=== PATIENT | male | born 1990 | race Caucasian/White ===

== ENCOUNTER → 2018-01-19 | Emergency (ER) | payer OTHER ==
[~2018-01-19] VITALS: Ht 167.6 cm; Wt 70.3 kg
== END | disposition home or self-care (01) ==
LOC: ER 15:55
DX: T18.0XXA Foreign body in mouth, initial encounter (principal); T54.91XA Toxic effect of unspecified corrosive substance, accidental (unintentional), initial encounter; Y92.89 Other specified places as the place of occurrence of the external cause; Y93.89 Activity, other specified; Y99.8 Other external cause status